=== PATIENT | female | born 2000 | race Two or more races ===

== ENCOUNTER → 2025-03-13 | Emergency (ER) | payer OTHER ==
[~2025-03-13] VITALS: Ht 157.5 cm; Wt 48.4 kg
[2025-03-13 23:48] VITALS: BP 104/75; PULSE 105; RESP 20; TEMP 98.7; O2SAT 98
== END | disposition left against medical advice (07) ==
LOC: ER 23:44
DX: R06.02 Shortness of breath (principal); R07.81 Pleurodynia; Z53.21 Procedure and treatment not carried out due to patient leaving prior to being seen by health care provider